=== PATIENT | male | born 1960 | race African-American/Black ===

== ENCOUNTER 2020-04-29 10:56 | Emergency (ER) | payer MEDICARE ==
[~2020-04-29] VITALS: Ht 180.3 cm; Wt 117.9 kg
--- NOTE | 2020-04-29 15:00 | NUR ---
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 STAFF IN WORKING WITH THE FAMILY THEY VISITED AND GRIEVED THE . WAS NAMED CHARRED AT .
== END 2020-04-29 11:11 ==
LOC: ER 10:56
DX: I46.9 Cardiac arrest, cause unspecified (principal); Z20.828 Contact with and (suspected) exposure to other viral communicable diseases